=== PATIENT | male | born 1945 | race Caucasian/White ===

== ENCOUNTER 2017-04-16 11:03 | Day surgery (SDC) | payer BC, MEDICARE, OTHER ==
[~2017-04-16] VITALS: Ht 177.8 cm; Wt 92.0 kg
[~2017-04-16 11:03] MED LIST: ALBU18HF INH; ASPI-496 PO; FENO145T32 PO; FENTANYL PF 100 MCG/2ML ONE; MIDAZOLAM 1 MG/ML, 2ML ONE; MULT-82 PO; OMEP-110 PO; TAMS0.4C2 PO; ZOLP10TA5 PO
[2017-04-16 11:39] VITALS: BP 152/93
[2017-04-16] MEDS ORDERED: LACTATED RINGERS 1,000 ML IV SCH (11:43)
[2017-04-16] MEDS ORDERED: MIDAZOLAM 1 MG/ML, 2ML ONE (13:07)
[2017-04-16] MEDS ORDERED: FENTANYL PF 100 MCG/2ML ONE (13:07)
[2017-04-16] MEDS ORDERED: OXYcodone 5 MG/5 ML ORAL.SOL UDC PO PRN (14:00)
[2017-04-16] MEDS ORDERED: ALBUTEROL SULFATE 2.5 MG/3 ML NPPB PRN (14:00)
[2017-04-16] MEDS ORDERED: LABETALOL 5MG/ML, 20ML IV PRN (14:00)
[2017-04-16] MEDS ORDERED: ACETAMINOPHEN 325 MG TABLET PO PRN (14:00)
[2017-04-16] MEDS ORDERED: PROMETHAZINE 25 MG/ML, 1ML IV PRN (14:00)
[2017-04-16] MEDS ORDERED: hydrALAzine 20 MG/ML, 1ML IV PRN (14:00)
[2017-04-16] MEDS ORDERED: MEPERIDINE/PF 25MG/0.5ML IVPush PRN (14:00)
[2017-04-16] MEDS ORDERED: FENTANYL PF 100 MCG/2ML IV PRN (14:00)
[2017-04-16] MEDS ORDERED: ONDANSETRON 2MG/ML, 2ML IVPush PRN (14:00)
[2017-04-16] MEDS ORDERED: HYDROmorphone 1 MG/ML, 1ML IV PRN (14:00)
[2017-04-16] MEDS ORDERED: KETAMINE 10 MG/ML, 20ML ONE (15:43)
[2017-04-16] MEDS ORDERED: PROPOFOL 10 MG/ML, 50ML ONE (15:43)
[2017-04-16] MEDS ORDERED: ONDANSETRON 2MG/ML, 2ML ONE (15:43)
== END 2017-04-16 15:20 ==
LOC: OUT 11:03
PROVIDERS: ATTEND Internal Medicine Geriatric Medicine
DX: K86.2 Cyst of pancreas (principal); N40.0 Benign prostatic hyperplasia without lower urinary tract symptoms; F10.10 Alcohol abuse, uncomplicated; Z85.828 Personal history of other malignant neoplasm of skin; Z98.890 Other specified postprocedural states; Z98.49 Cataract extraction status, unspecified eye; Z80.42 Family history of malignant neoplasm of prostate; Z72.0 Tobacco use; Z87.891 Personal history of nicotine dependence; J45.909 Unspecified asthma, uncomplicated
CPT/HCPCS: 43237; 93005; J2250; J2405; J2704; J3010; J7120